=== PATIENT | female | born 1955 | race Caucasian/White ===

== ENCOUNTER 2021-10-18 10:03 | Emergency (ER) | payer MEDICARE, MEDICAID, SELFPAY ==
--- NOTE | ~2021-10-18 | XR_ITS ---
XR hip RT min 3V w AP pelvis 10/18/2021 11:38 Indication: Right hip pain after fall Procedure: AP pelvis and 4 views right hip Comparison: No prior studies for comparison. Findings: There is an irregular ossific density projecting posterior to the ischium, consistent with avulsion fracture. Pelvic rings are otherwise intact. Sacral foramen are symmetric. Mild lower lumbar spondylosis. No foreign bodies. Impression: 1: Avulsion fracture posterior margin of the ischium. Reviewed, dictated and finalized at location B. [employer]PRESENTAT[employer] Impression: 1: Avulsion fracture posterior margin of the ischium.
[2021-10-18 11:03] VITALS: BP 133/93; PULSE 84; RESP 16; TEMP 36.3; O2SAT 96
--- NOTE | 2021-10-18 11:24 | PC.NURSE ---
Pt to xray.
--- NOTE | 2021-10-18 12:12 | PC.NURSE ---
Pt given walker for assistance for ambulation trial. Pt able to ambulate without walker. Reports pain is much better with the assistance when ambulating. Pt has walker at home she is able to use.
[2021-10-18 12:31] VITALS: BP 141/98; PULSE 84; RESP 16; O2SAT 97
--- NOTE | 2021-10-18 19:40 | ED.GENADULT ---
HPI - General Adult General Chief complaint: Extremity Injury, Lower Stated complaint: Hip pain x2 days. Time Seen by Provider: 10/18/21 11:23 Source: patient Mode of arrival: ambulatory Limitations: no limitations History of Present Illness HPI narrative: Patient is a 66-year-old female presented with chief complaint of right hip buttock pain that began after falling on 10-02-21. Patient reports the pain has increased over the past 2 days. She reports it is most painful when sitting on her buttock or ambulating. She denies any head impact or loss of consciousness. Patient denies any other injuries or areas of time. Related Data Allergies Allergy/AdvReac Type Severity Reaction Status Date / Time codeine Allergy Unknown Unknown Verified 10/18/21 11:05 latex Allergy Unknown Unknown Verified 10/18/21 11:05 Review of Systems Review of Systems: CONSTITUTIONAL: Denies fever, chills, or sweats. EYES: Denies visual changes, redness, or discharge. ENT: Denies rhinorrhea, congestion, sore throat, or otalgia. CARDIOVASCULAR: Denies chest pain, palpitations, or edema. RESPIRATORY: Denies cough or dyspnea. GASTROINTESTINAL: Denies abdominal pain, nausea, vomiting, or diarrhea. GENITOURINARY: Denies dysuria or hematuria. SKIN: Denies rash or itching. MUSCULOSKELETAL: Reports right hip and buttock pain denies back pain or myalgia. NEUROLOGIC: Denies headache, numbness, dizziness, or weakness. PSYCHIATRIC: Denies anxiety or depression. Exam Narrative: GENERAL: Well-appearing, well-nourished, and in no acute distress. HEAD: Normocephalic, atraumatic. EYES: PERRLA and EOMI. NECK: Supple. No adenopathy or masses. Range of motion intact. CHEST: Clear to auscultation. No respiratory distress. No tachypnea. EXTREMITIES: Right buttock tenderness with palpation over the ischial tuberosity. Gait steady. Normal range of motion. No edema. SKIN: Warm, dry, no rash. NEURO: No focal deficits. Alert and oriented x3. PSYCH: Normal mood and affect. Course Vital Signs Vital signs: Vital Signs Temperature 97.3 F L 10/18/21 11:03 Pulse Rate 84 10/18/21 11:03 Respiratory Rate 16 10/18/21 11:03 Blood Pressure 133/93 H 10/18/21 11:03 Pulse Oximetry 96 10/18/21 11:03 Temperature 97.3 F L 10/18/21 11:03 Pulse Rate 84 10/18/21 12:31 Respiratory Rate 16 10/18/21 12:31 Blood Pressure 141/98 H 10/18/21 12:31 Pulse Oximetry 97 10/18/21 12:31 Medical Decision Making MDM Narrative Medical decision making narrative: Patient appears to have an avulsion fracture on the ischium on the right side. Patient can ambulate but ambulates better using a walker to offload some of the weight. Patient instructed to follow-up with behavioral health specialist for further investigation and management of her symptoms. Patient denies any other areas of injury. Patient states she is ready to be discharged home. Patient has a tramadol and naproxen prescription at home which she can take for pain. Vital Signs Vital Signs: Vital Signs Temperature 97.3 F L 10/18/21 11:03 Pulse Rate 84 10/18/21 11:03 Respiratory Rate 16 10/18/21 11:03 Blood Pressure 133/93 H 10/18/21 11:03 Pulse Oximetry 96 10/18/21 11:03 Temperature 97.3 F L 10/18/21 11:03 Pulse Rate 84 10/18/21 12:31 Respiratory Rate 16 10/18/21 12:31 Blood Pressure 141/98 H 10/18/21 12:31 Pulse Oximetry 97 10/18/21 12:31 Imaging Data Radiologist's impression: ITS Impressions Hip/Pelvis X-Ray 10/18/21 11:40 Impression: 1: Avulsion fracture posterior margin of the ischium. Discharge Plan Discharge Clinical Impression: Avulsion fracture of ischium Qualifiers: Encounter type: initial encounter Fracture type: closed Fracture alignment: nondisplaced Laterality: right Qualified Code(s): S32.614A - Nondisplaced avulsion fracture of right ischium, initial encounter for closed fracture Patient Disposition: Home, Self-Care Condition: Improve
== END 2021-10-18 12:33 | disposition home or self-care (01) ==
PROVIDERS: Emergency Provider Emergency Medicine; PCP Family Medicine
DX: S32.614A Nondisplaced avulsion fracture of right ischium, initial encounter for closed fracture (principal); W19.XXXA Unspecified fall, initial encounter
CPT/HCPCS: 73502; 99284

== ENCOUNTER 2021-12-06 10:03 | Emergency (ER) | payer MEDICARE, MEDICAID, SELFPAY ==
--- NOTE | ~2021-12-06 | XR_ITS ---
EXAMINATION: XR tibia fibula LT 2V DATE: 12/06/2021 12:18 INDICATION: Distal left tibia/fibular pain post fall 4 days prior TECHNIQUE: Anteroposterior and lateral views of the left tibia and fibula were obtained. COMPARISON: None. FINDINGS: Alignment is normal. No fracture. Joint spaces are preserved. Small marginal osteophytes at the garcia lofemoral compartment consistent with mild osteoarthritis. The left knee or ankle joint effusions. [place] at the posterior calcaneus. Soft tissues are unremarkable. IMPRESSION: 1. No acute osseous abnormality. Reviewed, dictated and finalized at location A. [employer]
[2021-12-06 10:43] VITALS: BP 117/75; PULSE 76; RESP 18; TEMP 36.3; O2SAT 98
[2021-12-06 11:36] VITALS: BP 117/75; PULSE 76; RESP 18; O2SAT 98
--- NOTE | 2021-12-06 11:38 | ED.GENADULT ---
HPI - General Adult General Chief complaint: Extremity Injury, Lower Stated complaint: fall/leg pain Time Seen by Provider: 12/06/21 11:37 History of Present Illness HPI narrative: Patient is a 66-year-old female who comes to the ED today complaining of pain in her lateral left ghosh after mechanical fall. Patient reports that 3 days ago she was walking down her stairs and says that she missed her bottom step and fell to the ground. She does not know if she hit her left ghosh or not, she believes that she rolled her ankle. she not suffer any other injuries from this fall. She has been having pain in her left ghosh and since that is made worse with standing and with walking and is relieved with sitting. There is no pain in her foot or ankle. There is no numbness or tingling. She has been trying ibuprofen, Tylenol, tramadol, muscle relaxers with no relief. Related Data Home Medications Medication Instructions Recorded Confirmed No Home Medications 12/06/21 12/06/21 Allergies Allergy/AdvReac Type Severity Reaction Status Date / Time codeine Allergy Unknown Unknown Verified 12/06/21 11:38 latex Allergy Unknown Unknown Verified 12/06/21 11:38 Review of Systems Constitutional: Constitutional: Reports as per HPI, Denies fever(s), Denies night sweats and Denies weakness Cardiovascular: Cardiovascular: Denies chest pain, Denies edema, Denies leg edema, Denies dyspnea and Denies orthopnea Respiratory: Respiratory: Denies cough and Denies dyspnea Gastrointestinal: Gastrointestinal: Denies abdominal pain, Denies constipation, Denies diarrhea, Denies nausea and Denies vomiting Musculoskeletal: Musculoskeletal: Denies abnormal gait, Denies back pain, Denies numbness and Denies tingling Comments: See HPI Neurologic: Denies Abnormal speech present, Denies abnormal gait, Denies numbness, Denies tingling and Denies weakness Psychiatric: Psychiatric: Denies homicidal ideation and Denies suicidal ideation Exam Const: General: cooperative, healthy appearing, comfortable, no acute distress, well developed, alert, awake and Physically active Orientation/consciousness: patient oriented x3 HENMT: Head: normal to inspection, normocephalic and atraumatic Ears: external ears normal General nose exam: Normal external nose present Eyes: Pupils: Equal, round and reactive pupils present EOM: EOMs intact bilaterally Neck: Neck: normal visual inspection Chest: Chest palpation & inspection: normal inspection of the chest and no tenderness Resp: Effort & Inspection: normal respiratory effort and able to speak in complete sentences Auscultation: clear to auscultation bilaterally Cardio: Rate: regular rate Rhythm: regular rhythm GI: Inspection: normal to inspection GI Palp: No abdominal tenderness : General: Yes no CVA tenderness Back/Spine/Pelvis: Back: no CVA tenderness Skin: General skin exam: normal color and no rashes or lesions noted Lesions: no lesions Neuro: General: patient oriented x3, no focal motor deficits and CN's II-XI intact bilaterally Cranial nerves: Yes Equal, round and reactive pupils present Speech: No Abnormal speech present Extrem: General: normal to inspection, full ROM and no calf tenderness bilaterally Left lower extremity: normal to inspection and full ROM Upper/lower leg/hip images: 1. Tender to palpate over anterior lateral aspect left ghosh. The compartment is soft. No overlying edema or ecchymosis. Full range of motion left lower extremity in all planes. Neurovascular intact throughout. Psych: Appearance: grossly normal and well kempt Mental Status: mental status grossly normal Speech and movement: Normal speech and movement present Affect: normal affect Thought process: Normal thought process present Course Vital Signs Vital signs: Vital Signs Temperature 36.3 C L 12/06/21 10:43 Pulse Rate 76 12/06/21 10:43 Respiratory Rate 18 12/06/21 10:43 Blood Pressure 117/75 12/06/21
[2021-12-06] MEDS: KETOROLAC 30 MG/ML VIAL (*BKC) IM (12:09)
== END 2021-12-06 13:31 | disposition home or self-care (01) ==
PROVIDERS: Emergency Provider Emergency Medicine; PCP Family Medicine
DX: S80.12XA Contusion of left lower leg, initial encounter (principal); W10.9XXA Fall (on) (from) unspecified stairs and steps, initial encounter
CPT/HCPCS: 73590; 96372; 99283; J1885

== ENCOUNTER 2024-06-27 11:15 | Outpatient (RCR) | payer MEDICARE, MEDICAID, SELFPAY ==
[2024-05-21 11:30] VITALS: BP 142/80; PULSE 68; RESP 20; O2SAT 98
[2024-05-21 11:47] VITALS: PULSE 67
== END 2024-07-04 10:29 | disposition home or self-care (01) ==
LOC: ANHCPREHAB 11:15
PROVIDERS: PCP Family Medicine; Visit Provider Student in an Organized Health Care Education/Training Program
DX: J44.9 Chronic obstructive pulmonary disease, unspecified (principal)
CPT/HCPCS: 94625